=== PATIENT | female | born 1930 | race Caucasian/White ===

== ENCOUNTER 2017-03-05 16:03 | Emergency (ER) | payer MEDICARE, BC ==
[2017-03-05 16:27] VITALS: BP 128/62; PULSE 79; RESP 18; TEMP 97.8
[2017-03-05] MEDS ORDERED: traMADol 50 MG TAB PO STA (16:50)
--- NOTE | 2017-03-05 17:00 | ED ---
Fall HPI - General Chief Complaint: Fall Stated Complaint: Fall Time Seen by Provider: 03/05/17 16:28 Source: patient Mode of arrival: wheelchair - History of Present Illness Initial Comments: 86-year-old female patient presents to emergency department today for evaluation of left shoulder pain and left hip pain. Patient states that last night around 0100 she was going down the hallway to go to bed, states that she fell down onto her left side hitting her left hip. Patient states took her moment to get back up when she was again standing she turned, fell again injuring her left shoulder. Patient denies hitting her head or losing consciousness. Patient states that she was not dizzy and did not pass out. Patient states that she just was rushing and fell. Patient states that she is having a lot of pain to her shoulder, she states it is tender, states it hurts to move it. Patient states she did have some tingling to her left hand this morning but that has resolved. She states that her left hip is sore, she can move without difficulty. She denies any numbness or tingling to her left leg. States that she has been able to ambulate without difficulty today. Patient denies any headache, neck pain, back pain, chest pain, shortness of breath, dizziness, weakness, abdominal pain, nausea, vomiting, or difficulties with bowel movements or urination. - Related Data Home Medications Medication Instructions Recorded Confirmed Atenolol [Tenormin] 50 mg PO DAILY 03/04/14 07/10/16 Furosemide [Lasix] 40 mg PO DAILY 03/04/14 07/10/16 Isosorbide Mononitrate [Imdur] 30 mg PO BID 03/04/14 07/10/16 Levothyroxine Sodium [Synthroid] 50 mcg PO DAILY 03/04/14 07/10/16 Omeprazole [PriLOSEC] 20 mg PO DAILY 03/04/14 07/10/16 Simvastatin [Zocor] 20 mg PO HS 03/04/14 07/10/16 Zinc 50 mg PO DAILY 03/04/14 07/10/16 Aspirin EC [Ecotrin Low Dose] 81 mg PO DAILY 05/07/15 07/10/16 Montelukast [Singulair] 10 mg PO HS 05/07/15 07/10/16 Sertraline [Zoloft] 50 mg PO DAILY 05/07/15 07/10/16 Ipratropium-Albuterol Nebulize 3 ml INHALATION RT-QID 03/22/16 07/10/16 [Duoneb 0.5 mg-3 mg/3 ml Soln] Acetaminophen Tab [Tylenol Tab] 650 mg PO Q6H PRN 07/10/16 07/10/16 Ascorbic Acid [Vitamin C] 500 mg PO DAILY 07/10/16 07/10/16 Fluticasone/Salmeterol [Advair 1 puff INHALATION RT-BID 07/10/16 07/10/16 250-50 Diskus] LORazepam [Ativan] 2 mg PO HS 07/10/16 07/10/16 Potassium 99 mg PO DAILY 07/10/16 07/10/16 guaiFENesin 400 mg PO TID PRN 07/10/16 07/10/16 Previous Rx's Medication Instructions Recorded traMADol HCl [Ultram] 50 mg PO Q6H PRN #20 tab 03/05/17 Allergies Allergy/AdvReac Type Severity Reaction Status Date / Time aspirin Allergy Swelling Verified 03/05/17 16:27 egg Allergy Unknown Verified 03/05/17 16:27 Latex, Natural Rubber Allergy Swelling Verified 03/05/17 16:27 naproxen Allergy Itching Verified 03/05/17 16:27 Penicillins Allergy Swelling Verified 03/05/17 16:27 Review of Systems ROS Statement: Those systems with pertinent positive or pertinent negative responses have been documented in the HPI. ROS Other: All systems not noted in ROS Statement are negative. Past Medical History Past Medical History: Coronary Artery Disease (CAD), COPD, Hyperlipidemia, Hypertension, Myocardial Infarction (ID) Additional Past Medical History / Comment(s): Anemia Last Myocardial Infarction Date:: 2003 History of Any Multi-Drug Resistant Organisms: None Reported Past Surgical History: Appendectomy, Heart Catheterization With Stent, Hysterectomy Past Anesthesia/Blood Transfusion Reactions: No Reported Reaction Date of Last Stent Placement:: 2004 Past Psychological History: Anxiety Smoking Status: Former smoker Past Alcohol Use History: None Reported Past Drug Use History: None Reported - Past Family History Sister(s) Additional Family Medical History / Comment(s): Breast cancer General Exam Limitations: no limitations General appearance: alert, in no apparent distress Head exam: Present: atraumatic, normocephalic, normal inspection Eye exam: Present: normal appearance, PERRL, EOMI. Absent: scleral icterus, conjunctival injection, periorbital swelling ENT exam: Present: normal exam, normal oropharynx, mucous membranes moist Neck exam: Present: normal inspection, full ROM, other (Nontender, no step-off, no deformity to firm midline palpation of the posterior cervical spine. Full range of motion without pain or limitation.). Absent: tenderness, meningismus, lymphadenopathy Respiratory exam: Present: normal lung sounds bilaterally. Absent: respiratory distress, wheezes, rales, rhonchi, stridor Cardiovascular Exam: Present: regular rate, normal rhythm, normal heart sounds. Absent: systolic murmur, diastolic murmur, rubs, gallop, clicks GI/Abdominal exam: Present: soft, normal bowel sounds. Absent: distended, tenderness, guarding, rebound, rigid Extremities exam: Present: normal capillary refill, other (Radial pulse strong and equal bilaterally. Pedal pulses strong and equal bilaterally. Skin to all extremities is pink, warm, and dry.) Left Shoulder Exam: Present: normal inspection, tenderness over AC joint. Absent: full ROM (Pain with forward flexion, extension, and abduction.), swelling, abrasion, ecchymosis, deformity, erythema Upper Arm exam: Present: normal inspection. Absent: tenderness, swelling, ecchymosis, erythema Elbow exam: Present: normal inspection, full ROM Forearm Wrist exam: Present: normal inspection, full ROM Hand Wrist exam: Present: normal inspection, full ROM Left Hip exam: Present: full ROM, tenderness (Tenderness over the greater trochanter) , ecchymosis, pelvic stability. Absent: normal inspection, swelling, abrasion, deformity, external rotation, internal rotation, shortening Upper Leg exam: Present: normal inspection Knee exam: Present: normal inspection, full ROM Lower Leg exam: Present: normal inspection Ankle exam: Present: normal inspection, full ROM Back exam: Present: normal inspection, other (Nontender, no step-off, no deformity to firm midline palpation of the thoracic and lumbar vertebrae. Full range of motion without pain or limitation.). Absent: tenderness, CVA tenderness (R), CVA tenderness (L), vertebral tenderness Neurological exam: Present: alert, oriented X3, CN II-XII intact Psychiatric exam: Present: normal affect, normal mood Skin exam: Present: warm, dry, intact, normal color. Absent: rash Course Vital Signs 03/05/17 16:24 Temperature 97.8 F Pulse Rate 79 Respiratory 18 Rate Blood Pressure 128/62 O2 Sat by Pulse 95 Oximetry Medical Decision Making - Medical Decision Making 86-year-old female patient presented for evaluation of left shoulder and hip pain after fall last night. X-rays of the left hip and shoulder obtained and showed no acute osseous abnormalities. Patient was placed in a sling to the left arm. She was instructed to wear this for 2-3 days, then start gentle range of motion exercises. Given prescription for ultram. Patient was instructed to follow-up with the orthopedic doctor in 7-10 days if her pain symptoms persist. She was also instructed to follow up her primary care physician for recheck in 1-2 days. Instructed to return here for any new, worsening, or concerning symptoms. Patient verbalized understanding and agreed with this plan. - Radiology Data Radiology results: report reviewed, image reviewed 3 views of the left shoulder were obtained. No fracture nor dislocation seen. Joint spaces are normal. There is spurring at the before meals joint. Impression by Dr. Carl shows no acute abdomen out of the left shoulder. 3 views of the left hip and pelvis are obtained and showed pelvic ring is intact. Proximal left femur and hip joint are intact. There is left hip joint space mild narrowing. Sacroiliac joints appear intact. 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 No fracture. Disposition Clinical Impression: Injury of left shoulder, Contusion of left hip Disposition: HOME SELF-CARE Condition: Good Instructions: Fall Prevention for Older Adults (ED), Shoulder Pain (ED), Hip Pain (ED) Additional Instructions: Use sling for 2-3 days. Start gentle stretching exercises. Follow-up with orthopedics for recheck if he is still having symptoms began 7-10 days. Follow up with her primary care physician for recheck in 1-2 days. Return here immediately for any new, worsening, or concerning symptoms. Prescriptions: traMADol HCl [Ultram] 50 mg PO Q6H PRN #20 tab PRN Reason: Pain Referrals: Kim Trinh MD [Primary Care Provider] - 1-2 days Derek Mattson MD [STAFF PHYSICIAN] - 1-2 days Time of Disposition: 17:41
--- NOTE | 2017-03-05 17:28 | XR ---
EXAMINATION TYPE: XR shoulder complete LT DATE OF EXAM: 03/05/2017 COMPARISON: NONE HISTORY: Shoulder pain TECHNIQUE: 3 views FINDINGS: I see no fracture nor dislocation. Joint spaces are normal. There is spurring at the AC duke nt. IMPRESSION: No acute abnormality of the left shoulder.
--- NOTE | 2017-03-05 17:29 | XR ---
EXAMINATION TYPE: XR Hip LT and AP Pelvis DATE OF EXAM: 03/05/2017 COMPARISON: NONE HISTORY: Pain after falling TECHNIQUE: 3 views FINDINGS: The pelvic ring is intact. Proximal left femur and hip joint are intact. There is left hip joint space mild narrowing. Sacroiliac joints appear intact. IMPRESSION: Mild osteoarthritis. No fracture.
== END 2017-03-05 17:45 | disposition home or self-care (01) ==
LOC: EC 16:03
DX: S49.92XA Unspecified injury of left shoulder and upper arm, initial encounter (principal); S70.02XA Contusion of left hip, initial encounter; I25.10 Atherosclerotic heart disease of native coronary artery without angina pectoris; I25.2 Old myocardial infarction; I10 Essential (primary) hypertension; J44.9 Chronic obstructive pulmonary disease, unspecified; E78.5 Hyperlipidemia, unspecified; F41.9 Anxiety disorder, unspecified; Z95.5 Presence of coronary angioplasty implant and graft; Z87.891 Personal history of nicotine dependence; Z79.82 Long term (current) use of aspirin; Z79.51 Long term (current) use of inhaled steroids; Z79.899 Other long term (current) drug therapy; Z88.0 Allergy status to penicillin; Z88.6 Allergy status to analgesic agent; Z91.040 Latex allergy status; W01.10XA Fall on same level from slipping, tripping and stumbling with subsequent striking against unspecified object, initial encounter
CPT/HCPCS: 73502; 99283

== ENCOUNTER → 2018-01-11 | Outpatient (CLI) | payer MEDICARE, BC ==
--- NOTE | 2018-01-11 14:14 | CT ---
EXAMINATION TYPE: CT brain wo/w con, CT orbits wo/w con DATE OF EXAM: 01/11/2018 COMPARISON: CT brain July 10, 2016 HISTORY: Optic atrophy, assess for compression CT DLP: 1939.20 (accession [id number]), 618.50 (accession [id number]) mGycm Automated exposure control for dose reduction was used. CONTRAST: CT scan of the head and orbits are performed without and with IV Contrast, patient injected with 100 mL of Isovue 300. FINDINGS: Noncontrast CT shows no acute intracranial hemorrhage or midline shift. There is ventricular and sulc al prominence consistent with diffuse cerebral atrophy. There is low-attenuation in the periventricu lar white matter felt to be on basis of product of chronic small vessel ischemic change in patient th is age redemonstrated. The calvarium is intact. The orbital floors and benson are intact. Bilateral lenses are thinned which may reflect underlying ca taracts. Intraconal fat is preserved bilaterally. Rectus muscles are symmetric and felt within normal limits. Suprasellar cistern is maintained. Optic chiasm is not effaced. Incidental vascular calcific ation of distal internal carotid arteries bilaterally is present. Visualized paranasal sinuses are cl ear. IMPRESSION: Redemonstration of fairly moderate diffuse cerebral atrophy and chronic small vessel ischemic change. No suspicious infraorbital findings identified. No suspicious enhancement noted.
== END | disposition home or self-care (01) ==
LOC: RADCTMAIN 12:29
PROVIDERS: ATTEND Ophthalmology
DX: G31.9 Degenerative disease of nervous system, unspecified (principal); I67.82 Cerebral ischemia
CPT/HCPCS: 82565; 84520; 70470; 70482; 36415; Q9967